=== PATIENT | female | born 1985 | race Caucasian/White ===

== ENCOUNTER 2017-04-10 08:48 | Day surgery (SDC) | payer OTHER ==
[~2017-04-10] VITALS: Ht 170.2 cm; Wt 66.7 kg
[~2017-04-10 08:48] MED LIST: ADVIL,NUPRIN,M200 MG PO; TYLENOL EXTRA500 MG PO; VITAMIN C500 M1 PO; WOMEN'S MULTI200 MCG PO
[2017-04-10 09:38] VITALS: BP 122/71
[2017-04-10 12:20] VITALS: BP 115/70
[2017-04-10 12:56] VITALS: BP 107/75
== END 2017-04-10 13:00 | disposition home or self-care (01) ==
LOC: SDC 08:48
PROC: 0UBC7ZX Excision of Cervix, Via Natural or Artificial Opening, Diagnostic (ICD-10-PCS; principal; 2017-04-10)
DX: D06.9 Carcinoma in situ of cervix, unspecified (principal); Z87.891 Personal history of nicotine dependence; Z83.49 Family history of other endocrine, nutritional and metabolic diseases; Z82.61 Family history of arthritis; Z83.3 Family history of diabetes mellitus
CPT/HCPCS: 88307; J2250; J2405; J3010

== ENCOUNTER 2018-03-11 21:32 | Inpatient (IN) | payer OTHER ==
[~2018-03-11] VITALS: Ht 170.2 cm; Wt 92.5 kg
[2018-03-11 22:13] VITALS: BP 133/79
[2018-03-11 23:42] LABS: BASOPHIL (%) 0.3 % (0-1); EOSINOPHIL (%) 1.2 % (0-5); EOSINOPHIL COUNT 0.1 K/uL (0-0.3); HEMATOCRIT 39.5 % (36.0-46.0); HEMOGLOBIN 13.5 G/DL (11.9-15.5); IMMATURE GRANULOCYTE (%) 0.5 % (0.0-0.7); LYMPHOCYTE (%) 18.6 % (15-42); LYMPHOCYTE COUNT 2.1 K/uL (1.0-2.8); MCH 30.3 PG (29.0-34.0); MCHC 34.2 G/DL (30.0-36.0); MCV 88.6 FL (83-99); NEUTROPHIL (%) 70.4 % (45-76); NEUTROPHIL COUNT 8.1 K/uL (1.8-6.4); PLATELET COUNT 230 K/uL (156-360); RBC DIS.WIDTH-CV 13.6 % (11.8-14.6); RBC DIS.WIDTH-SD 44.3 % (39-53); RED BLOOD COUNT 4.46 M/uL (3.80-5.20); WHITE BLOOD COUNT 11.4 K/uL (4.1-10.2)
[2018-03-12] VITALS (32 sets, daily range): BP systolic 116–148; BP diastolic 63–97
[2018-03-12 04:31] LABS: AMPHETAMINE NEGATIVE (500 ng/mL); BARBITURATES NEGATIVE (200 ng/mL); BENZODIAZEPINES NEGATIVE (150 ng/mL); BUPRENORPHINE NEGATIVE (10 ng/mL); COCAINE NEGATIVE (150 ng/mL); METHADONE NEGATIVE (200 ng/mL); METHAMPHETAMINE NEGATIVE (500 ng/mL); OPIATES (MORPHINE) NEGATIVE (100 ng/mL); OXYCODONE NEGATIVE (100 ng/mL); PHENCYCLIDINE NEGATIVE (25 ng/mL); PROPOXYPHENE NEGATIVE (300 ng/mL); THC CANNABINOIDS NEGATIVE (50 ng/mL); TRICYCLIC ANTIDEPRESSANTS NEGATIVE (300 ng/mL)
[2018-03-12] MEDS ORDERED: MOTRIN800 MG PO (21:17)
[2018-03-13 08:55] VITALS: BP 142/80
[2018-03-13 23:03] VITALS: BP 134/77
[2018-03-14 07:47] VITALS: BP 149/84
== END 2018-03-14 11:09 | disposition home or self-care (01) | DRG 775 ==
LOC: LDRP-OP 21:32 → 2WEST 21:33 → LDRP-OP 04-09 09:19
PROVIDERS: Advanced Practice Midwife
DX: O70.0 First degree perineal laceration during delivery (principal); O69.81X0 Labor and delivery complicated by cord around neck, without compression, not applicable or unspecified; O42.92 Full-term premature rupture of membranes, unspecified as to length of time between rupture and onset of labor; O99.824 Streptococcus B carrier state complicating childbirth; O99.72 Diseases of the skin and subcutaneous tissue complicating childbirth; L30.9 Dermatitis, unspecified; O22.43 Hemorrhoids in pregnancy, third trimester; Z3A.39 39 weeks gestation of pregnancy; Z37.0 Single live birth
CPT/HCPCS: 85025; C1755; G0378; J2540; J7120

== ENCOUNTER → 2018-03-26 | Outpatient (CLI) | payer OTHER ==
[~2018-03-26] MED LIST changes: +MOTRIN800 MG PO
== END | disposition home or self-care (01) ==
LOC: LAC 12:21
DX: Z39.1 Encounter for care and examination of lactating mother (principal); O92.03 Retracted nipple associated with lactation
CPT/HCPCS: G0463